=== PATIENT | male | born 1955 | race Caucasian/White ===

== ENCOUNTER 2022-01-01 07:44 | Outpatient (CLI) | payer OTHER, BC, SELFPAY ==
--- NOTE | 2022-01-01 07:55 | ECG_ITS ---
Measurements Intervals [place] Rate: 65 P: 30 LA: 160 QRS: -5 QRSD: 171 T: 70 QT: 467 QTc: 487 Interpretive Statements SINUS RHYTHM LEFT BUNDLE BRANCH BLOCK BASELINE ARTIFACT- I, II, III, AVR, AVL, AVF, V1-V6 ABNORMAL ECG Electronically Signed On 01-01-2022 9:08:34 CDT by Jean Marie Hopkins D.O.
[2022-01-01 08:19] LABS: Anion Gap 5 mmol/L (8-16); Blood Urea Nitrogen 18 mg/dL (9-20); Calcium 9.1 mg/dL (8.4-10.2); Carbon Dioxide 30 mmol/L (22-30); Chloride 99 mmol/L (98-107); Estimated Glomerular Filt Rate > 60; Glucose 105 mg/dL (65-110); Potassium 3.9 mmol/L (3.4-5.0); Sodium 134 mmol/L (137-145)
== END 2022-01-01 07:45 | disposition home or self-care (01) ==
PROVIDERS: Anesthesiology; PCP Family Medicine; Visit Provider Orthopaedic Surgery
DX: Z01.818 Encounter for other preprocedural examination (principal); I44.7 Left bundle-branch block, unspecified; I10 Essential (primary) hypertension; Z51.81 Encounter for therapeutic drug level monitoring; Z79.899 Other long term (current) drug therapy
CPT/HCPCS: 36415; 80048; 93005

== ENCOUNTER 2022-01-03 01:23 | Day surgery (SDC) | payer OTHER, BC, SELFPAY ==
[2021-12-31 08:47] VITALS: BMI 27.1
--- NOTE | 2021-12-31 09:00 | PC.NURSE ---
Report to the Outpatient Waiting Room, entrance under the green pavilion located off [facility], at time 6:30 on date 01/03/22. OR Time: 8:30. - You and your visitor will be asked a series of questions to screen for COVID 19 for your protection. - Only one visitor is allowed at this time. - The patient visitor is requested to leave or wait in car when not with patient. - A mask is required within the hospital. Patients may have clear liquids (water, carbonated beverages, clear teas, apple juice) until 3 hours prior to surgery (5:30) with a maximum of 20 ounces. - No food from midnight until time of surgery Take the following medications with a SIP of water the morning of surgery: NONE Medications to discontinue per physician: N/A Date to take last dose: N/A Please no make-up, nail libyan, hairspray, perfume, deodorant, or body powder the day of surgery. No jewelry (including any body piercings) or valuables the day of surgery, leave them at home. Please take a shower or bath the night before, or the morning of, surgery with an antibacterial soap. Wear comfortable, loose fitting clothing. - Jewelry must be removed prior to entering the operating room. Rings and piercings that are not removed may be cut off. - The hospital will not accept responsibility for valuables. - Please leave all valuables, including medications, at home the day of surgery. If you are going home after surgery, a licensed escort vehicle driver must drive you home. - NO public transportation without another adult. - We recommend that an adult stay with you for 24 hours following discharge. - We also recommend that you do not drive, make important decision, drink alcoholic beverages, or take any drugs that were not prescribed by your health care provider for at least 24 hours after your discharge time. Follow any additional instructions given to you from your surgeon. If you or anyone in your household have experienced Covid symptoms in the past week, please notify your surgeon or the nurse liaison at the phone number below for possible testing. Telephone instructions given to PT - [employer] and asked if any additional questions and then verbalized understanding. Patient advised to call surgeon office or pre surgery nurse liaison [phone] if any additional questions.
[2022-01-03] VITALS (7 sets, daily range): BP systolic 123–190; BP diastolic 84–107; PULSE 62–99; RESP 14–20; TEMP 36.3–36.4; O2SAT 94–100
--- NOTE | ~2022-01-03 | XR_ITS ---
EXAMINATION: XR surgery orthopedic DATE: 01/03/2022 09:40 INDICATION: Right ankle excision exostosis removal hardware TECHNIQUE: 3 fluoroscopic images of the right ankle were obtained during procedure performed by Dr. Vincent watt. Radiologist was not present for the imaging or procedure. The amount of fluoroscopy time used during this procedure was 2.1 minutes. COMPARISON: 12/28/2021 FINDINGS: Interval removal of the interfragmentary screw and fixation screws along the distal fibula with resid ual lucent screw tracks. No evident retained metallic foreign bodies. Bone alignment appears normal. No acute fracture. Small heterotopic ossicle near the tip the medial malleolus likely sequela of coat finisher angely medial ankle sprain. No change in additional small round ossicle at the posterolateral aspect of the right ankle joint. The profiled joint spaces are unremarkable. IMPRESSION: 1. Fluoroscopy utilized during removal of fixation instrumentation along the distal fibula. No acute osseous abnormality or retained foreign bodies. See procedure note for further detail. Reviewed, dictated and finalized at location B. IMPRESSION: 1. Fluoroscopy utilized during removal of fixation instrumentation along the di stal fibula. No acute osseous abnormality or retained foreign bodies. See proce dure note for further detail.
--- NOTE | 2022-01-03 06:51 | WPDANESEPPF ---
Anes - Initial Pre Proc Eval Procedure: Operation Date: 01/03/22 08:30 Proposed Procedures p Right Ankle Excision Exostosis, Removal of Hardware - Nicola Moore MD Date/Time: 01/03/22 06:51 Surgeon: Nicola Moore MD Pre Op Diagnosis: Right Ankle Exostosis, Painful Hardware Patient Data Age: 66 Gender: M Height: 1.83 m Weight: 90.72 kg Allergies Allergy/AdvReac Type Severity Reaction Status Date / Time albuterol Allergy Redness of Verified 12/31/21 08:45 Skin Home Medications Medication Instructions Recorded Confirmed Type amlodipine 5 mg tablet 5 mg PO HS 12/28/21 12/31/21 History aspirin 81 mg tablet,delayed 81 mg PO HS 12/28/21 12/31/21 History release (Adult Aspirin Regimen) chlorthalidone 25 mg tablet 25 mg PO DAILY 12/28/21 12/31/21 History ezetimibe 10 mg tablet 10 mg PO HS 12/28/21 12/31/21 History metoprolol succinate 50 mg 50 mg PO HS 12/28/21 12/31/21 History tablet,extended release 24 hr Patient hx anesthesia problems: none Family hx anesthesia problems: none Results Review: All pre-operative results and documents have been reviewed as part of the pre-operative evaluation. [facility] Past Medical History Medical History (Updated 01/03/22 @ 06:51 by Benigno Argueta MD) Arthritis CAD (coronary artery disease) Exostosis of right fibula HLD (hyperlipidemia) HTN (hypertension) Painful orthopaedic hardware Surgical History Surgical History (Updated 01/03/22 @ 06:52 by Benigno Argueta MD) H/O inguinal hernia repair H/O parotidectomy History of ankle surgery Right ankle ORIF 20+years ago. Family History Family History (Updated 12/28/21 @ 08:55 by Dasia Baeza) Other Arthritis HLD (hyperlipidemia) Hypertension Social History Social History Smoking packs per day: 1 Smoking cigarettes per day: 20.0 Years smoked: 45 Smoking pack-years: 45.00 Smoking status: Former smoker Tobacco type: cigarettes Smoking end date: 06/23/15 Alcohol intake: current Drinks per week: 7 Substance use: never Substance use type: does not use Living arrangements: alone Additional occupation/education comments: Assembler [employer] Gender identity (if verbalized by the patient): Male Spiritual care concerns: No Anes - Eval Final PreProcedure Day of Procedure 01/03/22 06:51 Patient weight: overweight Heart: regular rate and rhythm Lungs: clear to auscultation Airway: Mallampati scale class II Neurological: alert and oriented Last oral intake: >/= 8 hours ASA classification: III Emergent: no Anesthetic plan: proceed Anesthesia type and monitoring: general LMA and standard monitoring Results Review: All pre-operative results and documents have been reviewed as part of the pre-operative evaluation. Informed Consent: The patient's anesthetic plan and its attendant risks and benefits were discussed with the patient/family/POA. Questions were solicited and answers provided to the satisfaction of the patient/family/POA.
--- NOTE | 2022-01-03 07:07 | WPDHPUPDATE1 ---
History and Physical Update Update Date/Time: 01/03/22 07:07 History and Physical has been reviewed, including an updated exam of the patient. There are NO changes in the patient's condition. Risks, benefits, and alternatives have been discussed and questions answered. Patient agrees to proceed with procedure.
[2022-01-03] MEDS: ACETAMINOPHEN 500 MG TABLET 1000 MG PO (08:10)
[2022-01-03] MEDS: KETOROLAC 15 MG/ML VIAL (*BKC) IV PUSH (08:10)
[2022-01-03] MEDS: LACTATED RINGERS 1,000 ML 30 ML IV CONT (08:17)
[2022-01-03] MEDS: ceFAZolin 2 GM/D5W 50 ML 2 GM/50 ML BAG IVPB (08:39)
[2022-01-03] MEDS: BUPIVACAINE HCL 0.25% PF 30 ML VIAL 10 ML INFILTRATE (09:08)
--- NOTE | 2022-01-03 10:02 | W.PM.PROC2 ---
Procedure Note - Detailed Date of Procedure 01/03/22 Pre-op Diagnosis Right Ankle Exostosis, Painful Hardware Post-op Diagnosis Same Procedure Performed Excision of right distal fibular exostosis, removal of deep hardware right ankle. Surgeon Nicola Moore MD Profiler Operator front office assistant Anesthesia General Indications 66-year-old gentleman with a previous right distal fibular fracture treated with internal fixation. Now with pain over the hardware as well as excess bone formation at the distal fibula. Difficulty with shoe wear and activity. Presents now for operative treatment. Findings 2 cm defect lateral aspect of the fibula beneath the plate which appeared to be stress shielding. Anterior posterior and medial cortices intact. Defect packed with allograft bone chips. Description of Procedure Patient identified in the preoperative holding. Informed consent given. Operative extremity marked. Patient received intravenous antibiotics. Patient brought to the operating room where underwent general anesthetic by anesthesia team. Positioned supine on operating room table. Time-out performed confirming the patient, site of the surgery and the plan. Right ankle prepped and draped usual sterile surgical fashion using ChloraPrep skin solution. Foot ankle exsanguinated and thigh tourniquet inflated to 250 mmHg. Local anesthetic with 0.5% Marcaine injected around the distal fibula. Previous incisional scar was identified and used to make skin incision over the lateral distal fibula. bleeding points coagulated. Fascia incised in line with skin incision. We were then able to identify the plate and screws on the lateral aspect. Screws were removed with a screwdriver the plate was elevated off of the lateral fibula and passed off. Rongeur was used to remove any scar from the bone. There was a defect in midportion of the fibula which appeared to be stress shielding from plate. This was thoroughly irrigated and then addressed with allograft cancellous chips which were packed into the defect. Wound irrigated fascia closed with 2-0 Vicryl interrupted suture. Incision then made over the distal fibula and deepened through the fascia. This was elevated off the distal fibula and large exostosis was with at osteotome and smoothed with a rongeur. Wound irrigated. Ankle then taken through range of motion. The peroneal tendons were noted to be stable. Fascia closed with 2-0 Vicryl interrupted suture. Subcutaneous tissue repaired with 3-0 Monocryl interrupted suture and skin repaired with 3-0 nylon running suture. Sterile dressing applied. The patient was then woken from anesthesia, extubated and taken to the recovery room in stable condition. All sponge, needle, instrument counts were correct at the end of the case. Estimated Blood Loss 5 Tourniquet Time 45 Drains No Packing No Pathology None sent Complications None Condition Stable Disposition PACU
== END 2022-01-03 11:45 | disposition home or self-care (01) ==
PROVIDERS: PCP Family Medicine; Visit Provider Orthopaedic Surgery
PROC: (CPT 20680; principal; 2022-01-03 08:30)
DX: T84.84XA Pain due to internal orthopedic prosthetic devices, implants and grafts, initial encounter (principal); Y83.8 Other surgical procedures as the cause of abnormal reaction of the patient, or of later complication, without mention of misadventure at the time of the procedure; M25.771 Osteophyte, right ankle; I25.10 Atherosclerotic heart disease of native coronary artery without angina pectoris; I10 Essential (primary) hypertension; E78.5 Hyperlipidemia, unspecified; Z79.82 Long term (current) use of aspirin; Z87.891 Personal history of nicotine dependence
CPT/HCPCS: 20680; 27635; 36415; 80048; 93005; 99199; A9270; C1713; J0690; J1885; J2250; J2405; J2704; J3010; J7120; L2116